=== PATIENT | male | born 1985 | race African-American/Black ===

== ENCOUNTER 2016-11-06 08:25 | Emergency (ER) | payer MEDICAID ==
[~2016-11-06] VITALS: Ht 180.3 cm; Wt 85.7 kg
[2016-11-06 08:42] VITALS: BP 115/75
[2016-11-06] MEDS ORDERED: HYDROcodone-ACET 10/325MG TAB PO ONE (10:30)
== END 2016-11-06 10:48 | disposition home or self-care (01) ==
LOC: ER 08:33
DX: S82.491A Other fracture of shaft of right fibula, initial encounter for closed fracture (principal); S82.301A Unspecified fracture of lower end of right tibia, initial encounter for closed fracture; F17.210 Nicotine dependence, cigarettes, uncomplicated; W01.0XXA Fall on same level from slipping, tripping and stumbling without subsequent striking against object, initial encounter; Y99.8 Other external cause status; Y93.55 Activity, bike riding; Y92.89 Other specified places as the place of occurrence of the external cause
CPT/HCPCS: 29505; 73590; 73610